=== PATIENT | female | born 1975 | race Caucasian/White ===

== ENCOUNTER 2016-10-18 12:25 | Emergency (ER) | payer SELFPAY ==
[~2016-10-18] VITALS: Ht 157.5 cm; Wt 55.3 kg
[2016-10-18 13:02] VITALS: BP 110/69
[2016-10-18] MEDS ORDERED: ACETAMINOPHEN EXTRA STRENGTH 500 MG TAB PO ONE (13:10)
[2016-10-18] MEDS ORDERED: IBUPROFEN 600 MG TAB PO ONE (13:10)
--- NOTE | 2016-10-18 13:15 | NUR ---
PT PRESENTS TO ER W/C/O RIGHT 4TH FINGER PAIN. PT STATES SHE SMASHED HER RIGHT 4TH FINGER 6 MONTHS AGO AND HIT IT AGAIN LAST NOC, CAUSING IMMEDIATE PAIN; DENIES N/V/D; SKIN IS PINK/WARM/DRY; AAOX4 WITH EVEN AND STEADY GAIT; LUNGS CLEAR BL; HR EVEN AND REGULAR; PT DENIES ANY FEVER, CP, SOB, OR COUGH AT THIS TIME; PATIENT STATES PAIN OF 6/10 AT THIS TIME; VSS; PATIENT POSITIONED FOR COMFORT; HOB ELEVATED; BEDRAILS UP X2; BED DOWN. ER MD MADE AWARE OF PT STATUS.
[2016-10-18 14:14] VITALS: BP 106/67
== END 2016-10-18 14:14 | disposition home or self-care (01) ==
LOC: MED 12:25
DX: S60.041A Contusion of right ring finger without damage to nail, initial encounter (principal); W22.8XXA Striking against or struck by other objects, initial encounter; Y93.89 Activity, other specified; Y92.89 Other specified places as the place of occurrence of the external cause; Y99.8 Other external cause status
CPT/HCPCS: 73140; 99284; Q0092

== ENCOUNTER 2018-09-25 15:25 | Emergency (ER) | payer SELFPAY ==
[~2018-09-25] VITALS: Ht 157.5 cm; Wt 56.7 kg
[2018-09-25 15:35] VITALS: BP 115/74
--- NOTE | 2018-09-25 15:40 | NUR ---
PATIENT AMBULATED TO ER BED 1.
--- NOTE | 2018-09-25 15:45 | NUR ---
PT PRESENTED TO THE ED WITH THE CHIEF C/O LEFT PINKY FINGER PAIN SINCE LAST NIGHT. NOT TAKING ANY MEDS FOR PAIN. SWOLLEN FINGER. +SENSATION. +CIRCULATION. DENIES ANY FEVER. NO DISCHARGE NOTED. DENIES ANY OTHER PROBLEM AT THIS TIME. ER MD AWARE.
[2018-09-25 16:20] VITALS: BP 107/68
--- NOTE | 2018-09-25 16:20 | NUR ---
Patient discharged with v/s stable. Written and verbal after care instructions given and explained. Patient alert, oriented and verbalized understanding of instructions. Ambulatory with steady gait. All questions addressed prior to discharge. ID band removed. Patient advised to follow up with PMD. Rx of KEFLEX 500MG given. Patient educated on indication of medication including possible reaction and side effects. Opportunity to ask questions provided and answered.
== END 2018-09-25 16:20 | disposition home or self-care (01) ==
LOC: MED 15:25
DX: L03.012 Cellulitis of left finger (principal)
CPT/HCPCS: 99283

== ENCOUNTER 2019-01-25 12:32 | Emergency (ER) | payer OTHER ==
[~2019-01-25] VITALS: Ht 157.5 cm; Wt 59.0 kg
[2019-01-25 12:41] VITALS: BP 140/58
--- NOTE | 2019-01-25 12:56 | NUR ---
PT TO ER BED 2
--- NOTE | 2019-01-25 13:07 | NUR ---
XRAY AT BEDSIDE
--- NOTE | 2019-01-25 13:14 | NUR ---
43F C/O RT HAND PAIN FOR 2 DAYS PT STATES SHE LIFTS HEAVY BAGS AT WORK ~50LBS , DENIES TRUAMA TO HAND. PAIN RADIATING UP TO ELBOW. SWELLING AT THENAR EMINENCE. NO ERYTHEMA. SKIN INTACT.
[2019-01-25] MEDS ORDERED: IBUPROFEN 800 MG TAB PO ONE (14:00)
[2019-01-25 14:50] VITALS: BP 135/68
== END 2019-01-25 14:50 | disposition home or self-care (01) ==
LOC: MED 12:32
DX: S63.501A Unspecified sprain of right wrist, initial encounter (principal); X50.9XXA Other and unspecified overexertion or strenuous movements or postures, initial encounter; Y93.89 Activity, other specified; Y92.89 Other specified places as the place of occurrence of the external cause; Y99.8 Other external cause status
CPT/HCPCS: 29125; 73130; 99283; Q0092

== ENCOUNTER 2019-02-24 08:59 | Emergency (ER) | payer SELFPAY ==
[~2019-02-24] VITALS: Ht 160 cm; Wt 51.7 kg
[2019-02-24 09:18] VITALS: BP 110/75
[2019-02-24] MEDS: IBUPROFEN 600 MG TAB PO ONE (10:34)
[2019-02-24 11:43] LABS: ALBUMIN 3.3 g/dL (3.4-5.0); ANION GAP 10.2 (8-16); CARBON DIOXIDE 26.6 mmol/L (21-32); CREATININE 0.6 mg/dL (0.6-1.3); POTASSIUM 3.8 mmol/L (3.5-5.1); TOTAL BILIRUBIN 0.2 mg/dL (0.0-1.0)
[2019-02-24 11:44] LABS: BASOPHILS # (AUTO) 0.1 K/uL (0.00-0.22); EOSINOPHILS # (AUTO) 0.1 K/uL (0-0.4); EOSINOPHILS % (AUTO) 1.4 % (0.0-4.0); HEMATOCRIT 28.2 % (36-48); HEMOGLOBIN 8.2 g/dL (12.0-16.0); LYMPHOCYTES # (AUTO) 1.7 K/uL (2.5-16.5); MEAN CORPUSCULAR HEMOGLOBIN 17 pg (27-31); MEAN CORPUSCULAR HGB CONC 29 g/dL (33-37); MEAN CORPUSCULAR VOLUME 59.2 fL (80-94); MONOCYTES # (AUTO) 0.4 K/uL (0.8-1.0); MONOCYTES % (AUTO) 6.1 % (1.7-9.3); NEUTROPHILS # (AUTO) 4.9 K/uL (1.8-7.7); NEUTROPHILS % (AUTO) 67.5 % (42.2-75.2); PLATELET COUNT (AUTO) 349 K/uL (140-450); RED BLOOD CELL COUNT(AUTO) 4.77 MIL/uL (4.20-5.40); RED CELL DISTRIBUTION WIDTH 20.5 % (11.6-13.7); WHITE BLOOD COUNT (AUTO) 7.2 K/uL (4.8-10.8)
[2019-02-24 14:07] VITALS: BP 110/80
== END 2019-02-24 14:07 | disposition home or self-care (01) ==
LOC: MED 08:59
DX: R07.89 Other chest pain (principal); R06.02 Shortness of breath; F41.9 Anxiety disorder, unspecified; Z91.030 Bee allergy status
CPT/HCPCS: 36415; 71045; 80053; 81002; 81025; 84484; 85025; 93005; 99284; Q0092

== ENCOUNTER 2019-06-15 08:21 | Inpatient (IN) | payer MEDICAID ==
[~2019-06-15] VITALS: Ht 167.6 cm; Wt 51.3 kg
--- NOTE | 2019-06-15 00:45 | NUR ---
BLOOD TRANSFUSION IN PROGRESS AT THIS TIME. PT HAS NO S/S OF REACTION NOTED. SHE IS IN BED RESTING WITH EYES CLOSED BUT AROUSABLE TO NAME AND LIGHT TOUCH. V/S FOLLOWS: T 98.2 P 91 R 18 B/P 126/72 02 100% ON ROOM AIR. ALL FALLS PRECAUTIONS IN PLACE AT THIS TIME AND CALL FELICIANO.
[2019-06-15 08:29] VITALS: BP 153/94
--- NOTE | 2019-06-15 08:35 | NUR ---
43 Y/O FEMALE PRESENTING WITH C/C OF ABDONIMAL PAIN LLQ/RLQ 7/10 CRAMPING AND BLEEDING FROM PERIOD X6 MONTHS. PER PT IT HAS WORSEN BY HAVING BLOOD CLOTS PRESENT X 2 DAYS. PER PT NO BLOOD TRANSFUSIONS IN THE PAST. NKA. MEDICAL HX OF CYST REMOVAL IN THE PAST. MEDICATIONS OF ATIVAN PRN. DENIES N/V/D. SIDE RAIL X1. BOWEL SOUNDS NORMOACTIVE.
--- NOTE | 2019-06-15 09:00 | NUR ---
DR ANDRADE AT BEDSIDE
--- NOTE | 2019-06-15 09:10 | NUR ---
LAB AT BEDSIDE
[2019-06-15 09:24] LABS: BASOPHILS # (AUTO) 0.1 K/uL (0.00-0.22); LYMPHOCYTES # (AUTO) 1.6 K/uL (2.5-16.5); MONOCYTES # (AUTO) 0.4 K/uL (0.8-1.0)
[2019-06-15 09:28] LABS: BASOPHILS % (AUTO) 0.9 % (0.0-2.0); EOSINOPHILS % (AUTO) 0.7 % (0.0-4.0); HEMATOCRIT 20.7 % (36-48); LYMPHOCYTES % (AUTO) 25.6 % (20.5-51.1); MEAN CORPUSCULAR HEMOGLOBIN 17 pg (27-31); MEAN CORPUSCULAR HGB CONC 29 g/dL (33-37); MEAN CORPUSCULAR VOLUME 60.5 fL (80-94); NEUTROPHILS # (AUTO) 4.1 K/uL (1.8-7.7); NEUTROPHILS % (AUTO) 66.8 % (42.2-75.2); PLATELET COUNT (AUTO) 371 K/uL (140-450); RED BLOOD CELL COUNT(AUTO) 3.43 MIL/uL (4.20-5.40); RED CELL DISTRIBUTION WIDTH 18.1 % (11.6-13.7); WHITE BLOOD COUNT (AUTO) 6.1 K/uL (4.8-10.8)
[2019-06-15 09:36] LABS: HEMOGLOBIN 5.9 g/dL (12.0-16.0)
--- NOTE | 2019-06-15 09:37 | NUR ---
DR ANDRADE NOTIFIED OF CRITICAL LAB VALUE ; H/H 5.9/20.7 ; LAB OBTAINED FROM ASSOCIATE SPA DIRECTOR GAEL Addendum: 06/15/19 at 1009 by KASIE ASSOCIATE SPA DIRECTORJENNIFER ARIZA
--- NOTE | 2019-06-15 09:38 | NUR ---
ULTRASOUND AT BEDSIDE
[2019-06-15] MEDS ORDERED: MEDR10TA PO (09:45)
--- NOTE | 2019-06-15 09:54 | NUR ---
EMT AT BEDSIDE ; EKG
[2019-06-15] MEDS ORDERED: ACETAMINOPHEN 325 MG TAB PO PRN (09:55)
[2019-06-15] MEDS ORDERED: DOCUSATE SODIUM 100 MG GELCAP PO PRN (09:55)
[2019-06-15] MEDS ORDERED: HYDROcodone/APAP 5/325 MG 1 TAB TAB PO PRN (09:55)
[2019-06-15] MEDS ORDERED: ONDANSETRON 4 MG/2 ML VIAL IM/IVP PRN (09:55)
[2019-06-15] MEDS ORDERED: MORPHINE SULFATE 2 MG/ML SYR IVP PRN (09:55)
--- NOTE | 2019-06-15 10:06 | NUR ---
DR ANDRADE AT BEDSIDE
--- NOTE | 2019-06-15 10:28 | NUR ---
BLOOD TRANSFUSION CONSENT SIGNED BY PATIENT AND ON CHART
[2019-06-15 10:48] LABS: POTASSIUM 3.8 mmol/L (3.5-5.1)
[2019-06-15 10:49] LABS: ANION GAP 13.3 (8-16); CARBON DIOXIDE 27.5 mmol/L (21-32)
[2019-06-15 10:50] LABS: ALBUMIN 3.5 g/dL (3.4-5.0); CREATININE 0.7 mg/dL (0.6-1.3); TOTAL BILIRUBIN 0.2 mg/dL (0.0-1.0)
--- NOTE | 2019-06-15 10:55 | NUR ---
Patient will be admitted to care of DR GRIER. Admited to TELEMETRY. Will go to [id number]. Belongings list completed. Report to DONNIE BROOKS. RECEIVING NURSE NOTIFIED OF BLOOD READY PER LABORATORY TO Walker UPON BED SIDE REPORT.
--- NOTE | 2019-06-15 10:55 | NUR ---
RECEIVED PATIENT FROM ER, REPORT GIVEN BY MARVA, PATIENT TRANSFERED INTO BED. VITALS ARE STABLE. WILL START IV FLUIDS AND CONFIRM ORDERS FOR BLOOD TRANSFUSION.
[2019-06-15] MEDS: NACL 0.9% 1,000 ML IV SCH ×2 (11:00→17:34)
[2019-06-15 11:09] LABS: BILIRUBIN,URINE NEGATIVE (NEGATIVE); BLOOD, URINE 2+ (NEGATIVE); COLOR,URINE YELLOW (YELLOW); LEUKOCYTE ESTERASE ,URINE NEGATIVE (NEGATIVE); NITRITE, URINE NEGATIVE (NEGATIVE); PH,URINE 6.5 (5.0-9.0); UGLUCOSE NEGATIVE (NEGATIVE)
[2019-06-15 11:10] LABS: PROTHROMBIN TIME 9.5 secs (10.8-13.4)
--- NOTE | 2019-06-15 11:15 | NUR ---
PATIENT SIGNED CONSENT FOR BLOOD TRANSFUSION, HAS NO QUESTIONS PERTAINING TO PROCEDURE. VITAL SIGNS ARE STABLE, WILL PREPARE PATIENT FOR BLOOD TRANSFUSION,
--- NOTE | 2019-06-15 12:00 | NUR ---
BLOOD INITIATED, PRE-BLOOD TRANSFUSION VITALS ARE STABLE. WILL CONTINUE TO MONITOR. PATIENT IN BED STABLE AT THIS TIME.
[2019-06-15 12:12] LABS: BARBITURATE, URINE NEGATIVE ng/ml (NEG <=200); BENZODIAZEPINE, URINE NEGATIVE ng/mL (NEG <=200); CANNABINOID, URINE NEGATIVE ng/mL (NEG <=50); COCAINE, URINE NEGATIVE ng/mL (NEG <=300); PHENCYCLIDINE SCREEN,URINE NEGATIVE ng/mL (NEG <=25)
[2019-06-15 12:13] LABS: OPIATE, URINE NEGATIVE ng/mL (NEG <=2000)
[2019-06-15 12:24] LABS: APPEARANCE,URINE CLEAR (CLEAR); RBC,URINE 0-5 /HPF (0-5)
[2019-06-15 12:25] LABS: WBC,URINE 0-5 /HPF (0-5)
[2019-06-15] MEDS: LORazepam 2 MG/ML VIAL IM/IVP PRN ×2 (12:44→22:19)
[2019-06-15 13:26] LABS: PHOSPHORUS 3.7 mg/dL (2.5-4.9)
[2019-06-15] MEDS: busPIRone 5 MG TAB PO SCH ×2 (14:22→21:00)
--- NOTE | 2019-06-15 16:00 | NUR ---
BLOOD TRANSFUSION COMPLETED. VITAL SIGNS STABLE. PATIENT SHOW NO SIGNS OF DISTRESS. WILL CALL LAB FOR A REPEAT BLOOD PANEL.
--- NOTE | 2019-06-15 16:10 | NUR ---
PATIENT REQUESTING PAIN MEDICATION FOR HEADACHE. PAIN MED WILL BE GIVEN AT THIS TIME. WILL CONTINUE TO FOLLOW UP.
[2019-06-15 18:06] LABS: BASOPHILS # (AUTO) 0.1 K/uL (0.00-0.22); BASOPHILS % (AUTO) 1.2 % (0.0-2.0); EOSINOPHILS # (AUTO) 0.1 K/uL (0-0.4); EOSINOPHILS % (AUTO) 1.8 % (0.0-4.0); HEMATOCRIT 22.5 % (36-48); LYMPHOCYTES # (AUTO) 1.4 K/uL (2.5-16.5); LYMPHOCYTES % (AUTO) 21.5 % (20.5-51.1); MEAN CORPUSCULAR HEMOGLOBIN 19 pg (27-31); MEAN CORPUSCULAR HGB CONC 30 g/dL (33-37); MEAN CORPUSCULAR VOLUME 62.6 fL (80-94); MONOCYTES # (AUTO) 0.4 K/uL (0.8-1.0); MONOCYTES % (AUTO) 6.4 % (1.7-9.3); NEUTROPHILS # (AUTO) 4.5 K/uL (1.8-7.7); NEUTROPHILS % (AUTO) 69.1 % (42.2-75.2); PLATELET COUNT (AUTO) 340 K/uL (140-450); RED CELL DISTRIBUTION WIDTH 20.5 % (11.6-13.7); WHITE BLOOD COUNT (AUTO) 6.5 K/uL (4.8-10.8)
--- NOTE | 2019-06-15 18:15 | NUR ---
PATIENT SLEEPING AT THE BED SIDE, NO RESPIRATORY DISTRESS NOTED. WILL CONTINUE TO MONITOR
[2019-06-15 18:16] LABS: HEMOGLOBIN 6.7 g/dL (12.0-16.0)
--- NOTE | 2019-06-15 19:05 | NUR ---
ENDORSED CARE TO SCREEN WRITER NURSE. PATIENT IN STABLE CONDITION
--- NOTE | 2019-06-15 19:50 | NUR ---
PT IN LOW BED WITH SIDE RAILS X2. SHE IS AOX4 WITH 20G IV SITE INTACT AND ASYMPTOMATIC AND RUNNING N/S AT 130MLS/HR. PT DENIES ANY PAIN AT THIS TIME , SHE STATES THAT SHE HAS MINIMAL VAGINAL BLEEDING AT THIS TIME. V/S FOLLOWS: T 97.9 P 95 R 18 B/P 116/78 02 99% ON ROOM AIR AND CALL FELICIANO IN REACH.
[2019-06-15 20:00] VITALS: BP 126/72
[2019-06-15] MEDS: medroxyPROGESTERone 10 MG TAB PO SCH (20:59)
--- NOTE | 2019-06-15 21:00 | NUR ---
PT IN BED NO C/O VOICED. PT AMBULATE TO BATHROOM, HER [employer]IT[employer] [place] WAS FULL AND SHE PASSED A MODERATE BLOOD CLOT. PT GIVEN ORDERED PROVERA, MEDICATION EDUCATION PROVIDED AT BEDSIDE INCLUDING SIDE EFFECTS OF MEDICATION, PT ACKNOWLEDGED UNDERSTANDING. ORDERED BUSPAR WAS NOT AVAILABLE. SLACKLINE OPERATOR AWARE. IV SITE INTACT AND RUNNING NS AT 130 MLS/HR. ALL FALLS PROTOCOL IN PLACE AND CALL FELICIANO IN REACH.
--- NOTE | 2019-06-15 22:20 | NUR ---
PT C/O OF ANXIETY, SHE WAS GIVEN IVP/PRN ATIVAN ORDERED. WILL MONITOR FOR EFFECT.
--- NOTE | 2019-06-15 23:10 | NUR ---
BLOOD TRANSFUSION STARTED. PT HAS 20G IV SITE INTACT FLUSHED PATENT AND ASYMPTOMATIC. PRE TRANSFUSION V/S FOLLOWS: T 97.5 P 88 R 18 B/P 125/89 02 100% ON ROOM AIR. WILL MONITOR FOR ANY REACTION. ALL FALLS PRECAUTIONS IN PLACE.
--- NOTE | 2019-06-15 23:30 | NUR ---
BLOOD TRANSFUSION IN PROGRESS, NO REACTION NOTED. PT IN BED RESTING WITH EYES CLOSED SHE REPORTS NO ANXIETY, AND NO REACTION NOTED FROM BLOOD TRANSFUSION. V/S FOLLOWS: T 97.0 P 82 R 18 B/P 121/84 02 99%. ALL FALLS PRECAUTIONS IN PLACE AND CALL FELICIANO IN REACH.
[2019-06-16] VITALS: BP 115/73
--- NOTE | 2019-06-16 00:50 | NUR ---
BLOOD TRANSFUSION IN PROGRESS, NO S/S OF REACTION NOTED. V/S FOLLOWS; T 98.0 P 92 R 18 B/P 115/73 02 100% ON ROOM AIR. ALL FALLS PRECAUTIONS IN PLACE AND CALL FELICIANO IN REACH.
[2019-06-16] MEDS: NACL 0.9% 1,000 ML IV SCH ×4 (01:16→23:08)
--- NOTE | 2019-06-16 02:10 | NUR ---
BLOOD TRANSFUSION COMPLETED. NO ADVERSE REACTION NOTED. POST TRANSFUSION V/S FOLLOW: T 97.0 P 93 R 18 B/P 116/78 02 100% ON ROOM AIR. ALL FALLS PRECAUTIONS IN PLACE AND CALL FELICIANO IN REACH.
[2019-06-16 04:00] VITALS: BP 124/87
[2019-06-16 04:15] LABS: BASOPHILS # (AUTO) 0.1 K/uL (0.00-0.22); EOSINOPHILS # (AUTO) 0.3 K/uL (0-0.4)
--- NOTE | 2019-06-16 04:30 | NUR ---
PT IN BED NO S/S OF PAIN OR DISTRESS NOTED V/S FOLLOWS: T 97.2 P 96 R 18 B/P 124/87 02 98% ON ROOM AIR. IV FLUIDS RUNNING ORDERED, NO S/S OF PAIN OR DISTRESS NOTED. BED LOW AND CALL FELICIANO IN REACH.
[2019-06-16 04:33] LABS: EOSINOPHILS % (AUTO) 4.1 % (0.0-4.0); HEMATOCRIT 25.5 % (36-48); LYMPHOCYTES # (AUTO) 1.7 K/uL (2.5-16.5); LYMPHOCYTES % (AUTO) 22.7 % (20.5-51.1); MEAN CORPUSCULAR HEMOGLOBIN 20 pg (27-31); MEAN CORPUSCULAR HGB CONC 30 g/dL (33-37); MEAN CORPUSCULAR VOLUME 65.9 fL (80-94); MONOCYTES # (AUTO) 0.5 K/uL (0.8-1.0); NEUTROPHILS # (AUTO) 4.9 K/uL (1.8-7.7); NEUTROPHILS % (AUTO) 65.2 % (42.2-75.2); PLATELET COUNT (AUTO) 319 K/uL (140-450); RED BLOOD CELL COUNT(AUTO) 3.87 MIL/uL (4.20-5.40); WHITE BLOOD COUNT (AUTO) 7.6 K/uL (4.8-10.8)
[2019-06-16 04:34] LABS: ANION GAP 12.6 (8-16); CARBON DIOXIDE 25.2 mmol/L (21-32); CREATININE 0.6 mg/dL (0.6-1.3); POTASSIUM 3.8 mmol/L (3.5-5.1)
[2019-06-16 04:37] LABS: MAGNESIUM 1.8 mg/dL (1.8-2.4); PHOSPHORUS 3.3 mg/dL (2.5-4.9)
[2019-06-16 04:39] LABS: CHOL/HDL RATIO 2.5 (1-4.5)
[2019-06-16 04:55] LABS: HEMOGLOBIN 7.6 g/dL (12.0-16.0)
[2019-06-16 06:12] LABS: FOLIC ACID 15.2 ng/mL (>3.0)
--- NOTE | 2019-06-16 07:25 | NUR ---
REPORT GIVEN TO MIKE RN DAYHISFT NURSE AT BEDSIDE FOR CONTINUITY OF CARE, PT IN STABLE CONDITION.
--- NOTE | 2019-06-16 07:26 | NUR ---
received bedside report from assistant store manager operations nurse. pt is awake and alert x4. no signs of distress on room air. skin is intact. iv on LAC 20g infusing Ns at 130. clean dry and intact. Pt is weak, fall risk protocol in place. continent, able to make needs known. Tele monitor in place. will continue to monitor. Bed on low position.
[2019-06-16] MEDS ORDERED: SODIUM FERRIC GLUCONATE 125 MG in NACL 0.9% 100 ML IV SCH (07:30)
[2019-06-16] MEDS ORDERED: SODIUM FERRIC GLUCONATE 125 MG in NACL 0.9% 100 ML IV ONE (07:30)
[2019-06-16 08:00] VITALS: BP 139/91
[2019-06-16] MEDS ORDERED: ACETAMINOPHEN 325 MG TAB PO SCH (08:00)
[2019-06-16] MEDS: medroxyPROGESTERone 10 MG TAB PO SCH ×2 (08:26→20:18)
[2019-06-16] MEDS: FERROUS SULFATE 325 MG TABEC PO SCH ×2 (08:27→18:09)
[2019-06-16] MEDS: NICOTINE TRANSD SYS 7 MG/24 HR PATCH TD SCH (08:27)
--- NOTE | 2019-06-16 08:40 | NUR ---
administered meds. Pt tolerated well. Educated on side effects. Pt. refused Nicotine patch, she said she doesn't smoke. will continue to monitor
--- NOTE | 2019-06-16 08:41 | NUR ---
PATIENT HAS BEEN SCREENED AND CATEGORIZED HIGH NUTRITION RISK. PATIENT WILL BE SEEN WITHIN 1-2 DAYS OF ADMISSION. 06/16/[address]
--- NOTE | 2019-06-16 08:55 | NUR ---
DC [age] YRS OLD FEMALE PT WAS ADMITTED FROM HOME WITH A DX OF SEVER ANEMIA, DYSFUNCTIONAL UTERINE BLEEDING . PT HAS A HX OF OVARIAN CYST, ,METH ABUSE. TRANSVAGINAL US DONE SHOWED UTERINE FIBROID LEFT OVARIAN CYST. 2 UNITS PRBC TRANSFUSED MONITOR H/H ON ADMISSION IT WAS 5.9/20.7 AFTER 2 UNITS 7.6/25.5 STARTED PROVERA 10MG PO BID, IRON AND VIT C SUPPLEMENTATION RECOMMENDED. OBGYN DR BERTRAND CONSULTED. DC PLAN TO GO HOME WHEN STABLE. CM TO FOLLOW.
[2019-06-16] MEDS: busPIRone 5 MG TAB PO SCH ×2 (10:10→20:19)
--- NOTE | 2019-06-16 10:45 | NUR ---
BLOOD TRANSFUSION STARTED. PATIENT IN NO DISTRESS. WILL CONTINUE TO MONITOR THE PATIENT.
--- NOTE | 2019-06-16 11:16 | NUR ---
PATIENT IS SLEEPING. NO SIGNS OF DISTRESS. WILL CONTINUE TO MONITOR. FAMILY AT BEDSIDE
[2019-06-16] MEDS ORDERED: ASCORBIC ACID 500 MG TAB PO SCH (11:50)
[2019-06-16 12:00] VITALS: BP 137/87
[2019-06-16] MEDS: FUROSEMIDE 20 MG TAB PO SCH ×2 (12:00→14:40)
--- NOTE | 2019-06-16 13:57 | NUR ---
ADMINISTERED MED. TOLERATED WELL. EDUCATED SIDE EFFECTS
--- NOTE | 2019-06-16 14:17 | NUR ---
06/16/19 RD INITIAL ASSESSMENT COMPLETED PLEASE REFER TO NUTRITION ASSESSMENT UNDER CARE ACTIVITY FOR ESTIMATED NUTRITIONAL NEEDS. 1. RECOMMEND REGULAR DIET WITH ENSURE BID TOLERATED 2. RD PROVIDED MALNUTRITION EDUCATION 3. ENCOURAGED INCREASING PO INTAKE 4. RD TO FOLLOW-UP 2-3 DAYS, HIGH RISK LAKSHMI PIMENTEL, RD
--- NOTE | 2019-06-16 15:10 | NUR ---
BLOOD TRANSFUSION COMPLETED AT 1435. PT HAS NO ALLERGIC REACTION. MEDICATION GIVEN ORDERED. FORMS COMPLETED
[2019-06-16 16:15] LABS: BASOPHILS # (AUTO) 0.1 K/uL (0.00-0.22); EOSINOPHILS # (AUTO) 0.3 K/uL (0-0.4); EOSINOPHILS % (AUTO) 3.9 % (0.0-4.0); HEMATOCRIT 27.6 % (36-48); HEMOGLOBIN 8.6 g/dL (12.0-16.0); LYMPHOCYTES # (AUTO) 1.8 K/uL (2.5-16.5); LYMPHOCYTES % (AUTO) 26.9 % (20.5-51.1); MEAN CORPUSCULAR HEMOGLOBIN 21 pg (27-31); MEAN CORPUSCULAR HGB CONC 31 g/dL (33-37); MEAN CORPUSCULAR VOLUME 67.5 fL (80-94); MONOCYTES # (AUTO) 0.4 K/uL (0.8-1.0); MONOCYTES % (AUTO) 6.6 % (1.7-9.3); NEUTROPHILS # (AUTO) 4.2 K/uL (1.8-7.7); NEUTROPHILS % (AUTO) 61.6 % (42.2-75.2); PLATELET COUNT (AUTO) 316 K/uL (140-450); RED BLOOD CELL COUNT(AUTO) 4.09 MIL/uL (4.20-5.40); RED CELL DISTRIBUTION WIDTH 24.2 % (11.6-13.7); WHITE BLOOD COUNT (AUTO) 6.8 K/uL (4.8-10.8)
[2019-06-16 17:01] VITALS: BP 129/83
--- NOTE | 2019-06-16 17:26 | NUR ---
PATIENT IS SLEEPING. NO SIGNS OF DISTRESS. WILL CONTINUE MONITORING
--- NOTE | 2019-06-16 19:07 | NUR ---
RECEIVED BEDSIDE REPORT FROM NYLA BROOKS. PT IS AAOX4 ON ROOM AIR. RESPIRATIONS ARE EQUAL AND UNLABORED. IV ON LAC 20G IVF NS@ 130 INFUSING WELL. SKIN IS INTACT. PT ON FALL PRECAUTION D/T CC FATIGUE AND DIZZINESS. WILL MONITOR HGB AND BLEEDING. POC DISCUSSED WITH PATIENT AND FAMILY. CALL LIGHT IS WITHIN REACH. WILL CONTINUE TO MONITOR.
[2019-06-16 20:00] VITALS: BP 136/91
--- NOTE | 2019-06-16 20:19 | NUR ---
VITAL SIGNS ARE WITHIN NORMAL LIMITS. NANCY MEDICATIONS GIVEN PER ORDERS. EDUCATED PT ON S/E. CALL LIGHT IS WITHIN REACH. WILL CONTINUE TO MONITOR.
[2019-06-16 21:22] LABS: BASOPHILS # (AUTO) 0.1 K/uL (0.00-0.22); BASOPHILS % (AUTO) 1.5 % (0.0-2.0); EOSINOPHILS # (AUTO) 0.4 K/uL (0-0.4); EOSINOPHILS % (AUTO) 4.5 % (0.0-4.0); HEMATOCRIT 28.4 % (36-48); HEMOGLOBIN 8.8 g/dL (12.0-16.0); LYMPHOCYTES # (AUTO) 1.5 K/uL (2.5-16.5); LYMPHOCYTES % (AUTO) 17.6 % (20.5-51.1); MEAN CORPUSCULAR HEMOGLOBIN 21 pg (27-31); MEAN CORPUSCULAR HGB CONC 31 g/dL (33-37); MEAN CORPUSCULAR VOLUME 67.6 fL (80-94); MONOCYTES # (AUTO) 0.5 K/uL (0.8-1.0); MONOCYTES % (AUTO) 5.5 % (1.7-9.3); NEUTROPHILS # (AUTO) 6.2 K/uL (1.8-7.7); NEUTROPHILS % (AUTO) 70.9 % (42.2-75.2); PLATELET COUNT (AUTO) 313 K/uL (140-450); RED CELL DISTRIBUTION WIDTH 24.4 % (11.6-13.7); WHITE BLOOD COUNT (AUTO) 8.8 K/uL (4.8-10.8)
--- NOTE | 2019-06-16 21:54 | NUR ---
PATIENT IS SLEEPING COMFORTABLY IN BED. CHEST RISE AND FALL. NO S/S OF DISTRESS. ALL NEEDS MET AT THIS TIME. CALL LIGHT IS WITHIN REACH.
[2019-06-17] VITALS: BP 117/76
--- NOTE | 2019-06-17 00:09 | NUR ---
VITAL SIGNS ARE WITHIN NORMAL LIMITS. PT DENIES PAIN OR DIZZINESS. ALL SAFETY MEASURES ARE IN PLACE. CALL LIGHT IS WITHIN REACH. WILL CONTINUE TO MONITOR.
--- NOTE | 2019-06-17 02:13 | NUR ---
MADE ROUNDS. PATIENT IS SLEEPING COMFORTABLY IN BED WITH EYES CLOSED. CHEST RISE AND FALL. SAFETY MEASURES ARE IN PLACE.
[2019-06-17 04:00] VITALS: BP 139/85
--- NOTE | 2019-06-17 04:15 | NUR ---
VITAL SIGNS TAKEN AND ARE WITHIN NORMAL LIMITS. DENIES PAIN. ALL SAFETY MEASURES ARE IN PLACE. WILL CONTINUE TO MONITOR.
[2019-06-17 07:08] LABS: BASOPHILS % (AUTO) 0.3 % (0.0-2.0); EOSINOPHILS # (AUTO) 0.3 K/uL (0-0.4); EOSINOPHILS % (AUTO) 3.7 % (0.0-4.0); HEMATOCRIT 30.3 % (36-48); HEMOGLOBIN 9.2 g/dL (12.0-16.0); LYMPHOCYTES # (AUTO) 1.6 K/uL (2.5-16.5); LYMPHOCYTES % (AUTO) 19.1 % (20.5-51.1); MEAN CORPUSCULAR HEMOGLOBIN 21 pg (27-31); MEAN CORPUSCULAR HGB CONC 30 g/dL (33-37); MEAN CORPUSCULAR VOLUME 68.7 fL (80-94); MONOCYTES # (AUTO) 0.4 K/uL (0.8-1.0); MONOCYTES % (AUTO) 4.8 % (1.7-9.3); NEUTROPHILS # (AUTO) 6.2 K/uL (1.8-7.7); NEUTROPHILS % (AUTO) 72.1 % (42.2-75.2); PLATELET COUNT (AUTO) 329 K/uL (140-450); RED BLOOD CELL COUNT(AUTO) 4.41 MIL/uL (4.20-5.40); WHITE BLOOD COUNT (AUTO) 8.5 K/uL (4.8-10.8)
--- NOTE | 2019-06-17 07:10 | NUR ---
RECEIVED BEDSIDE SHIFT REPORT FROM NIGHT NURSE, PATIENT IS IN STABLE CONDITION, CALL LIGHT WITHIN REACH.
--- NOTE | 2019-06-17 07:15 | NUR ---
GAVE BEDSIDE REPORT TO DAY RN. PT ENDORSED IN STABLE CONDITION.
[2019-06-17 07:22] LABS: ANION GAP 13.5 (8-16); CARBON DIOXIDE 23.3 mmol/L (21-32); CREATININE 0.7 mg/dL (0.6-1.3); POTASSIUM 3.8 mmol/L (3.5-5.1)
[2019-06-17 07:44] LABS: MAGNESIUM 1.9 mg/dL (1.8-2.4); PHOSPHORUS 3.1 mg/dL (2.5-4.9)
[2019-06-17 08:00] VITALS: BP 129/82
[2019-06-17] MEDS: NACL 0.9% 1,000 ML IV SCH (08:04)
[2019-06-17] MEDS: FERROUS SULFATE 325 MG TABEC PO SCH (08:58)
[2019-06-17] MEDS: busPIRone 5 MG TAB PO SCH (08:58)
[2019-06-17] MEDS: medroxyPROGESTERone 10 MG TAB PO SCH (08:58)
[2019-06-17] MEDS ORDERED: ASCORBIC ACID 500 MG TAB PO SCH (09:00)
[2019-06-17] MEDS: NICOTINE TRANSD SYS 7 MG/24 HR PATCH TD SCH (09:00)
--- NOTE | 2019-06-17 09:00 | NUR ---
SCHEDULED MEDICATIONS AT THE BEDSIDE, PATIENT EDUCATED ON SIDE EFFECTS, PATIENT STATES SHE HAS NO QUESTIONS REGARDING MEDICATIONS. NO SIGNS OF DISTRESS WILL CONTINUE TO MONITOR.
[2019-06-17] MEDS ORDERED: MEDR10TA33 PO (10:22)
[2019-06-17] MEDS ORDERED: BUS5 PO (10:22)
[2019-06-17] MEDS ORDERED: FER325 PO (10:22)
--- NOTE | 2019-06-17 11:02 | NUR ---
ACKNOWLEDGED ORDERS TO DISCHARGE PATIENT FROM DR DEWITT, WILL PREPARED PATIENT FOR DISCHARGE.
[2019-06-17 12:00] VITALS: BP 140/97
--- NOTE | 2019-06-17 12:35 | NUR ---
PATIENT EDUCATED ON DISCHARGE INSTRUCTIONS, PATIENT VERBALIZED UNDERSTAND TO FOLLOW UP WITH DR SANZ FOR OBGYN CONSULT ON Friday06/21/2019 AT 8AM, PATIENT WILL RF TEST TECHNICIAN MEDICATIONS AT THE [facility] IN [place], ALL QUESTIONS WERE ANSWERED. PATIENT IS TO GET DRESS AND COLLECT ALL BELONGINGS. PATIENT'S BOYFRIEND, SUMAYA, IS AT THE BEDSIDE WITH PATIENT.
--- NOTE | 2019-06-17 12:49 | NUR ---
PATIENT IS DRESSED AND READY FOR DISCHARGE, PATIENT IS IN STABLE CONDITION. ID WRIST BANDS AND ALLERGY BAND WAS REMOVED FROM PATIENT, IV WAS REMOVED WITH LUMEN INTACT, NO REDNESS AND SWELLING NOTED. PATIENT HAS BELONGINGS AND WITH ESCORTED VIA AMBULATION WITH BOYFRIEND TO LOBBY. PATIENT IS DISCHARGED AT THIS TIME.
== END 2019-06-17 13:05 | disposition home or self-care (01) | DRG 532 ==
LOC: MED 08:21 → MTU 09:57
PROVIDERS: ADMIT General Practice; ATTEND General Practice
PROC: 30233N1 Transfusion of Nonautologous Red Blood Cells into Peripheral Vein, Percutaneous Approach (ICD-10-PCS; principal; 2019-06-15)
DX: D25.9 Leiomyoma of uterus, unspecified (principal); E87.8 Other disorders of electrolyte and fluid balance, not elsewhere classified; D50.9 Iron deficiency anemia, unspecified; F15.10 Other stimulant abuse, uncomplicated; F17.210 Nicotine dependence, cigarettes, uncomplicated; F41.0 Panic disorder [episodic paroxysmal anxiety]; N93.8 Other specified abnormal uterine and vaginal bleeding; N83.202 Unspecified ovarian cyst, left side; Z91.030 Bee allergy status; Z79.899 Other long term (current) drug therapy; Z91.14 Patient's other noncompliance with medication regimen; Z80.3 Family history of malignant neoplasm of breast; Z80.41 Family history of malignant neoplasm of ovary; Z71.51 Drug abuse counseling and surveillance of drug abuser
CPT/HCPCS: 36415; 76856; 80048; 80053; 80305; 81001; 81025; 82150; 82607; 82728; 82746; 83036; 83540; 83690; 83735; 83880; 84100; 84443; 84484; 85025; 85045; 85610; 85730; 86886; 86900; 86901; 86920; 87081; 93005; 99285; J2060; J2270; J2916; J7030; P9016; Q0092; Q0163

== ENCOUNTER 2019-06-17 15:06 | Emergency (ER) | payer MEDICAID ==
[~2019-06-17 15:06] MED LIST: BUS5 PO; FER325 PO; MEDR10TA PO; MEDR10TA33 PO
--- NOTE | 2019-06-17 15:13 | NUR ---
PATIENT LEFT WITHOUT BEING SEEN AT THIS TIME. AMB WITH STEADY GAIT.
== END 2019-06-17 15:13 | disposition left against medical advice (07) ==
LOC: MED 15:06
DX: Z53.21 Procedure and treatment not carried out due to patient leaving prior to being seen by health care provider (principal)

== ENCOUNTER 2020-01-07 11:07 | Emergency (ER) | payer MEDICAID, OTHER ==
[~2020-01-07] VITALS: Ht 160 cm; Wt 59.9 kg
[~2020-01-07 11:07] MED LIST changes: -MEDR10TA PO
[2020-01-07 11:13] VITALS: BP 118/93
--- NOTE | 2020-01-07 11:15 | NUR ---
Pt given cup for urine, ambuated to lobby with steady gait
[2020-01-07] MEDS ORDERED: HYDROcodone/APAP 5/325 MG 1 TAB TAB PO ONE (12:15)
[2020-01-07] MEDS ORDERED: ONDANSETRON 4 MG ODT PO ONE (12:15)
[2020-01-07] MEDS ORDERED: KETOROLAC 30 MG/ML VIAL IM ONE (12:15)
--- NOTE | 2020-01-07 12:35 | NUR ---
44 Y/O F C/C LOW BACK PAIN X 2 DAYS. PT DENIES TRAUMA OR HEAVY LIFTING. PAIN 10/10, SHARP SENSATION, THORACIC VERTEBREA AREA, NON RADIATING. TAKEN OTC RX IBUPROFEN WITH NO RELIEF. PT NKA. NO HX. NO RX. NO NVD. NO DYSURIA, OR BM IRREGULARITIES. PT IN CHAIR A.
--- NOTE | 2020-01-07 12:35 | NUR ---
PT VISUALT ACUITY IS: R- 20/20 L-20/20 BOTH- 20/20
[2020-01-07 13:16] VITALS: BP 120/90
--- NOTE | 2020-01-07 13:16 | NUR ---
Patient discharged with v/s stable. Written and verbal after care instructions given and explained. Patient alert, oriented and verbalized understanding of instructions. Ambulatory with steady gait. All questions addressed prior to discharge. ID band removed. Patient advised to follow up with PMD. Rx of IBUPROFEN, MEDROL, NORCO given. Patient educated on indication of medication including possible reaction and side effects. Opportunity to ask questions provided and answered.
== END 2020-01-07 13:16 | disposition home or self-care (01) ==
LOC: MED 11:07
DX: S39.012A Strain of muscle, fascia and tendon of lower back, initial encounter (principal); F17.210 Nicotine dependence, cigarettes, uncomplicated; Z98.890 Other specified postprocedural states; Z79.899 Other long term (current) drug therapy; W18.39XA Other fall on same level, initial encounter; Y93.89 Activity, other specified; Y92.89 Other specified places as the place of occurrence of the external cause; Y99.8 Other external cause status
CPT/HCPCS: 81002; 81025; 96372; 99283; J1885; Q0162

== ENCOUNTER 2020-01-10 18:10 | Emergency (ER) | payer OTHER ==
[~2020-01-10] VITALS: Ht 157.5 cm; Wt 60.8 kg
[2020-01-10 18:23] VITALS: BP 127/71
--- NOTE | 2020-01-10 18:30 | NUR ---
PT C/O RT LOWER BACK PAIN RADIATING TO MID BACK FOR 4 DAYS. PT DENIES ANY FEVER, N/V/D, COUGH, CP, SOB, OR UTI SX. NO CVAT BILATERAL. AAOX4 WITH EVEN AND STEADY GAIT; LUNGS CLEAR BL; HR EVEN AND REGULAR; PATIENT STATES PAIN OF 10/10 AT THIS TIME; VSS; PATIENT POSITIONED FOR COMFORT; HOB ELEVATED; BEDRAILS UP X1; BED DOWN. ER MD MADE AWARE OF PT STATUS.
--- NOTE | 2020-01-10 19:12 | NUR ---
Pt report given to CECILIA Bolivar. Transfer of care at this time.
--- NOTE | 2020-01-10 19:14 | NUR ---
Patient taken to CT scan via wheelchair by tech.
[2020-01-10 19:53] LABS: BASOPHILS # (AUTO) 0.1 K/uL (0.00-0.22); BASOPHILS % (AUTO) 0.6 % (0.0-2.0); EOSINOPHILS % (AUTO) 0.6 % (0.0-4.0); HEMATOCRIT 24.3 % (36-48); HEMOGLOBIN 7.3 g/dL (12.0-16.0); LYMPHOCYTES # (AUTO) 1.3 K/uL (2.5-16.5); LYMPHOCYTES % (AUTO) 15.6 % (20.5-51.1); MEAN CORPUSCULAR HEMOGLOBIN 21 pg (27-31); MEAN CORPUSCULAR HGB CONC 30 g/dL (33-37); MEAN CORPUSCULAR VOLUME 70.6 fL (80-94); MONOCYTES # (AUTO) 0.6 K/uL (0.8-1.0); MONOCYTES % (AUTO) 6.9 % (1.7-9.3); NEUTROPHILS # (AUTO) 6.4 K/uL (1.8-7.7); NEUTROPHILS % (AUTO) 76.3 % (42.2-75.2); PLATELET COUNT (AUTO) 395 K/uL (140-450); RED BLOOD CELL COUNT(AUTO) 3.44 MIL/uL (4.20-5.40); RED CELL DISTRIBUTION WIDTH 19.4 % (11.6-13.7); WHITE BLOOD COUNT (AUTO) 8.4 K/uL (4.8-10.8)
--- NOTE | 2020-01-10 20:00 | NUR ---
PT TRANSFERRED TO BED 9 [facility]IA [facility].
[2020-01-10] MEDS ORDERED: ACETAMINOPHEN 325 MG TAB PO ONE (20:15)
[2020-01-10] MEDS ORDERED: IBUPROFEN 600 MG TAB PO ONE (20:15)
[2020-01-10 20:40] LABS: ALBUMIN 3.7 g/dL (3.4-5.0); ANION GAP 17.4 (8-16); CARBON DIOXIDE 20.9 mmol/L (21-32); CREATININE 0.9 mg/dL (0.6-1.3); POTASSIUM 3.3 mmol/L (3.5-5.1); TOTAL BILIRUBIN 0.2 mg/dL (0.0-1.0)
[2020-01-10 21:09] VITALS: BP 128/72
[2020-01-10 23:57] LABS: APPEARANCE,URINE CLOUDY (CLEAR); BILIRUBIN,URINE NEGATIVE (NEGATIVE); BLOOD, URINE 2+ (NEGATIVE); COLOR,URINE YELLOW (YELLOW); LEUKOCYTE ESTERASE ,URINE NEGATIVE (NEGATIVE); NITRITE, URINE NEGATIVE (NEGATIVE); UGLUCOSE NEGATIVE (NEGATIVE)
[2020-01-11 00:31] LABS: RBC,URINE 0-5 /HPF (0-5); WBC,URINE 0-5 /HPF (0-5)
== END 2020-01-10 21:09 | disposition home or self-care (01) ==
LOC: MED 18:10
DX: R10.9 Unspecified abdominal pain (principal); D64.9 Anemia, unspecified; Z79.899 Other long term (current) drug therapy
CPT/HCPCS: 36415; 80053; 81001; 81025; 85025; 99284

== ENCOUNTER 2020-04-11 15:43 | Emergency (ER) | payer OTHER ==
[~2020-04-11] VITALS: Ht 157.5 cm; Wt 60.3 kg
[2020-04-11 15:56] VITALS: BP 152/99
--- NOTE | 2020-04-11 16:10 | NUR ---
PT PRESENTS WITH HIDRADENITIS SUPPURATIVA TAMIKO WITH PAIN 3/10 AND PURULENT DRAINAGE FOR 7 DAYS. RIGHT AXILLA IS WORSE THAN THE LEFT. DENIES FEVER, CHILLS, OR COUGH. PT AOX4 , AFIBRILE , AMBULATORY WITH STEADY GAIT , BILATERAL ARMPIT WITH NOTABLE LUMP AND PUSTULES , NO DISCHARGE . NO LIMITATION OF ROM. PMH: DENIES
--- NOTE | 2020-04-11 16:26 | NUR ---
DR SANTOS AT BEDSIDE EVALAUTING PT
[2020-04-11] MEDS ORDERED: LIDOCAINE MPF 1% 5 ML ONE (16:29)
--- NOTE | 2020-04-11 17:30 | NUR ---
DR SANTOS AT BEDSIDE LAUREN Coyle
[2020-04-11 17:55] VITALS: BP 152/99
--- NOTE | 2020-04-11 17:56 | NUR ---
Patient discharged with v/s stable. Written and verbal after care instructions given and explained regarding abscess. Patient alert, oriented and verbalized understanding of instructions. Ambulatory with steady gait. All questions addressed prior to discharge. ID band removed. Patient advised to follow up with PMD. Rx of doxcycline given. Patient educated on indication of medication including possible reaction and side effects. Opportunity to ask questions provided and answered.
== END 2020-04-11 17:56 | disposition home or self-care (01) ==
LOC: MED 15:43
DX: L02.411 Cutaneous abscess of right axilla (principal); Z79.899 Other long term (current) drug therapy
CPT/HCPCS: 10060; 99283; J2001

== ENCOUNTER 2021-03-30 09:16 | Emergency (ER) | payer OTHER ==
[~2021-03-30] VITALS: Ht 157.5 cm; Wt 66.7 kg
[2021-03-30 09:23] VITALS: BP 135/91
--- NOTE | 2021-03-30 09:45 | NUR ---
45 Y/O F BIB SPOUSE FROM HOME, STATES SHE STOPPED TAKING MEDICATION 2 WEEKS, THIS MORNING HAD BLOOD CLOTS. STATES SHE HAS BEEN FEELING WEAK AND DIZZY. DENIES LOC, HEAD INJURY AND SYNCOPE. DENIES N/V/D. DENIES ANY PAIN. MED: MEGESTROL 40MG 1 TAB BID, ADVIL 2 PO AROUND 0400 THIS MORNING NKDA PMH: IRREGULAR MENSTRATION
--- NOTE | 2021-03-30 10:02 | NUR ---
DR DAVIES AT BEDSIDE EXAMINING PT
--- NOTE | 2021-03-30 10:19 | NUR ---
ULTRASOUND AT BEDSIDE
[2021-03-30 10:20] LABS: BASOPHILS % (AUTO) 0.7 % (0.0-2.0); EOSINOPHILS % (AUTO) 0.3 % (0.0-4.0); HEMOGLOBIN 10.5 g/dL (12.0-16.0); LYMPHOCYTES # (AUTO) 1.8 K/uL (2.5-16.5); LYMPHOCYTES % (AUTO) 28.4 % (20.5-51.1); MEAN CORPUSCULAR HEMOGLOBIN 23 pg (27-31); MEAN CORPUSCULAR HGB CONC 32 g/dL (33-37); MEAN CORPUSCULAR VOLUME 73.4 fL (80-94); MONOCYTES # (AUTO) 0.4 K/uL (0.8-1.0); MONOCYTES % (AUTO) 5.5 % (1.7-9.3); NEUTROPHILS # (AUTO) 4.1 K/uL (1.8-7.7); NEUTROPHILS % (AUTO) 65.1 % (42.2-75.2); PLATELET COUNT (AUTO) 285 K/uL (140-450); RED BLOOD CELL COUNT(AUTO) 4.49 MIL/uL (4.20-5.40); RED CELL DISTRIBUTION WIDTH 19.9 % (11.6-13.7); WHITE BLOOD COUNT (AUTO) 6.4 K/uL (4.8-10.8)
[2021-03-30 10:23] LABS: APPEARANCE,URINE SL CLOUDY (CLEAR); BILIRUBIN,URINE NEGATIVE (NEGATIVE); BLOOD, URINE 3+ (NEGATIVE); COLOR,URINE ORANGE (YELLOW); LEUKOCYTE ESTERASE ,URINE NEGATIVE (NEGATIVE); NITRITE, URINE NEGATIVE (NEGATIVE); PH,URINE 5.5 (5.0-9.0); UGLUCOSE NEGATIVE (NEGATIVE)
[2021-03-30 10:43] LABS: ANION GAP 14.3 (8-16); CREATININE 0.8 mg/dL (0.6-1.3); POTASSIUM 3.3 mmol/L (3.5-5.1)
[2021-03-30 10:44] LABS: ALBUMIN 3.8 g/dL (3.4-5.0); TOTAL BILIRUBIN 0.4 mg/dL (0.0-1.0)
[2021-03-30 10:49] LABS: RBC,URINE 80-100 /HPF (0-5); WBC,URINE 0-5 /HPF (0-5)
[2021-03-30 11:42] VITALS: BP 135/91
--- NOTE | 2021-03-30 11:42 | NUR ---
Patient discharged with v/s stable. Written and verbal after care instructions given and explained. Patient alert, oriented and verbalized understanding of instructions. Ambulatory with steady gait. All questions addressed prior to discharge. ID band removed. Patient advised to follow up with PMD. Opportunity to ask questions provided and answered.
== END 2021-03-30 11:42 | disposition home or self-care (01) ==
LOC: MED 09:16
DX: N94.6 Dysmenorrhea, unspecified (principal); D25.9 Leiomyoma of uterus, unspecified; Z79.899 Other long term (current) drug therapy; Z98.890 Other specified postprocedural states
CPT/HCPCS: 36415; 76856; 80053; 81001; 81025; 85025; 86886; 86900; 86901; 93976; 99284; Q0092

== ENCOUNTER 2021-08-06 05:52 | Emergency (ER) | payer OTHER ==
[~2021-08-06] VITALS: Ht 157.5 cm; Wt 65.8 kg
[2021-08-06 05:56] VITALS: BP 135/89
--- NOTE | 2021-08-06 06:02 | NUR ---
patient to bed 12 ambulatory
--- NOTE | 2021-08-06 06:06 | NUR ---
Patient BIB by family from home. C/O vaginal bleeding x today. Patient reported, had vaginal bleeding since 0400 AM, heavy bleeding, Hx Anemia, Fibriod, Hormone Imbalance. Rx Hormone Rx. A/O,X4, lower abdominal, cramping pain, pain rate 8/10.
--- NOTE | 2021-08-06 06:12 | NUR ---
Dr. Jarvis examining patient.
[2021-08-06] MEDS ORDERED: KETOROLAC 60 MG/2 ML VIAL IM ONE (06:15)
[2021-08-06] MEDS ORDERED: MEDR10TA PO (06:21)
[2021-08-06] MEDS ORDERED: IBUP-2213 PO (06:21)
[2021-08-06 06:57] VITALS: BP 135/89
--- NOTE | 2021-08-06 06:57 | NUR ---
Patient discharged with v/s stable. Written and verbal after care instructions given and explained. Patient alert, oriented and verbalized understanding of instructions. Ambulatory with steady gait. All questions addressed prior to discharge. ID band removed. Patient advised to follow up with PMD. Rx of Ibuprofen and Provera given. Patient educated on indication of medication including possible reaction and side effects. Opportunity to ask questions provided and answered.
== END 2021-08-06 06:57 | disposition home or self-care (01) ==
LOC: MED 05:52
DX: N93.8 Other specified abnormal uterine and vaginal bleeding (principal); D64.9 Anemia, unspecified; Z98.890 Other specified postprocedural states; Z79.899 Other long term (current) drug therapy
CPT/HCPCS: 81002; 81025; 96372; 99283; J1885

== ENCOUNTER 2021-09-07 11:06 | Inpatient (IN) | payer OTHER, SELFPAY ==
[~2021-09-07 11:06] MED LIST changes: +IBUP-2213 PO; +MEDR10TA PO
[2021-09-07] MEDS ORDERED: MIDAZOLAM 2 MG/2 ML VIAL ONE (14:12)
[2021-09-07] MEDS ORDERED: fentaNYL citrate 0.05 MG/ML VIAL ONE (14:12)
[2021-09-07] MEDS ORDERED: HYDROmorphone PFS 2 MG/ML SYR ONE (14:12)
[2021-09-07] MEDS ORDERED: PROPOFOL 200 MG/20 ML VIAL IV ONE (14:15)
[2021-09-07] MEDS ORDERED: ROCURONIUM 50 MG/5 ML VIAL IV ONE (14:15)
[2021-09-07] MEDS ORDERED: DEXAMETHASONE 4 MG/ML VIAL ONE (14:15)
[2021-09-07] MEDS ORDERED: ePHEDrine 50 MG/ML VIAL ONE (14:15)
[2021-09-07] MEDS ORDERED: ONDANSETRON 4 MG/2 ML VIAL ONE (14:15)
[2021-09-07] MEDS ORDERED: LIDOCAINE 2% 100 MG/5 ML SYR IVP ONE (14:15)
[2021-09-07] MEDS ORDERED: BUPIVACAINE-MPF 0.25% 30 ML VIAL INJ ONE (14:31)
[2021-09-07] MEDS ORDERED: LIDOCAINE 1% 500 MG/50 ML VIAL ONE (14:32)
[2021-09-07] MEDS ORDERED: PHENYLEPHRINE 10 MG/ML VIAL ONE (15:21)
[2021-09-07] MEDS ORDERED: GLYCOPYRROLATE 0.2 MG/ML VIAL ONE (17:32)
[2021-09-07] MEDS ORDERED: NEOSTIGMINE 1:1000 10 MG/10 ML VIAL ONE (17:32)
[2021-09-07] MEDS ORDERED: oxyCODONE/APAP 5/325 MG 1 TAB TAB PO PRN ×2 (18:15)
[2021-09-07] MEDS ORDERED: diphenhydrAMINE 50 MG/ML VIAL IVP PRN (18:15)
[2021-09-07] MEDS ORDERED: PROMETHAZINE 25 MG/ML VIAL IVP PRN (18:15)
[2021-09-07] MEDS ORDERED: ONDANSETRON 4 MG/2 ML VIAL IVP PRN (18:15)
[2021-09-07] MEDS ORDERED: SEVOFLURANE 250 ML BTL INH ONE (19:00)
--- NOTE | 2021-09-07 20:00 | NUR ---
ADMITTED PT AOX4 FROM ER,STABLE CONDITION
--- NOTE | 2021-09-07 20:15 | NUR ---
GREWAL CATHETER DISCONTINUED PER
--- NOTE | 2021-09-07 22:00 | NUR ---
PATIENT SLEEPING, BREATHING EVEN AND UNLABORED ,NO DISTRESS NOTED
[2021-09-08] VITALS: BP 105/62
--- NOTE | 2021-09-08 | NUR ---
PATIENT SLEEPING ,BREATHING EVEN AND UNLABORED,INCISION SITE INTACT,NO DRAINAGE NOTED
[2021-09-08] MEDS: KETOROLAC 30 MG/ML VIAL IVP SCH ×3 (00:25→12:29)
--- NOTE | 2021-09-08 03:00 | NUR ---
VS WITHIN NORMAL LIMITS, NO DISTRESS NOTED
[2021-09-08 04:00] VITALS: BP 108/61
--- NOTE | 2021-09-08 06:00 | NUR ---
PATIENT AWAKE ,VS STABLE,NO DISTRESS NOTED
--- NOTE | 2021-09-08 07:10 | NUR ---
RECEIVED REPORT FROM BURNISHING MACHINE OPERATOR NURSE FOR CONTINUITY OF CARE. PT IS SLEEPING AT THIS TIME. RESPIRATIONS ARE EVEN AND UNLABORED, ON ROOM AIR. NO SIGNS OF SOB OR DISTRESS NOTED. PT IS A&OX4. ABLE TO VERBALIZE NEEDS TO STAFF. PT IS ON REGULAR DIET. ABD IS NONTENDER, NONDISTENDED WITH BOWEL SOUNDS NOTED. PT HAS IV TO L WRIST 18G, AND R HAND 22 G. CALL LIGHT WITHIN REACH. ALL SAFETY MEASURES IN PLACE. WILL CONTINUE TO MONITOR.
[2021-09-08 08:00] VITALS: BP 91/50
--- NOTE | 2021-09-08 10:15 | NUR ---
PT STATES THAT SHE WAS ABLE TO VOID SINCE GREWAL CATHETER WAS REMOVED. NO COMPLAINTS OF PAIN UPON URINATION. CALL LIGHT WITHIN REACH. ALL SAFETY MEASURES IN PLACE. WILL CONTINUE TO MONITOR.
--- NOTE | 2021-09-08 12:32 | NUR ---
IV MEDICATION ADMINISTERED BY RN. WILL CONTINUE TO MONITOR.
[2021-09-08 15:33] VITALS: BP 96/53
--- NOTE | 2021-09-08 16:00 | NUR ---
DISCHARGE ORDER IN PLACE. PER DR SANZ, MEDICATION PRESCRIPTIONS HAVE BEEN SENT OVER TO PTS PREFERRED PHARMACY ALREADY. PT MADE AWARE. STATES THAT DR SANZ HAD ALREADY INFORMED HER THAT HE HAD SENT OVER HER MEDICATIONS ALREADY. WILL CONTINUE TO MONITOR.
[2021-09-08] MEDS ORDERED: IBUP-2213 PO (16:01)
--- NOTE | 2021-09-08 16:25 | NUR ---
WENT OVER DISCHARGE PAPERWORK WITH PT. ANSWERED ALL QUESTIONS. PT SIGNED ALL PAPERWORK. REMOVED IV. IV CATHETER INTACT. REMOVED WRISTBAND. ALL BELONGINGS TAKEN UPON DISCHARGE. PT DISCHARGED HOME WITH FAMILY.
== END 2021-09-08 16:25 | disposition home or self-care (01) | DRG 519 ==
LOC: MDS 12:28 → EDSTATUS 12:35 → MMU 12:42
PROVIDERS: ADMIT Obstetrics & Gynecology; ATTEND Obstetrics & Gynecology
PROC: 0UT74ZZ Resection of Bilateral Fallopian Tubes, Percutaneous Endoscopic Approach (ICD-10-PCS; 2021-09-07)
PROC: 0UT94ZZ Resection of Uterus, Percutaneous Endoscopic Approach (ICD-10-PCS; principal; 2021-09-07 14:00)
DX: D25.9 Leiomyoma of uterus, unspecified (principal); N80.0 Endometriosis of uterus; N92.0 Excessive and frequent menstruation with regular cycle; N94.6 Dysmenorrhea, unspecified; Z20.822 Contact with and (suspected) exposure to COVID-19; N81.3 Complete uterovaginal prolapse; Z98.891 History of uterine scar from previous surgery; Z82.49 Family history of ischemic heart disease and other diseases of the circulatory system; Z84.89 Family history of other specified conditions; Z79.899 Other long term (current) drug therapy
CPT/HCPCS: 36415; 81025; 86886; 86900; 86901; 87081; J1100; J1170; J1885; J2001; J2250; J2370; J2405; J2704; J2710; J3010; J3490; J7030

== ENCOUNTER 2023-03-19 18:15 | Emergency (ER) | payer OTHER ==
[~2023-03-19] VITALS: Ht 157.5 cm; Wt 53.6 kg
[2023-03-19 18:23] VITALS: BP 128/87; PULSE 82; RESP 18; TEMP 97.7; O2SAT 99
== END 2023-03-19 21:20 | disposition left against medical advice (07) ==
LOC: MED 18:15
DX: M79.601 Pain in right arm (principal); Z53.21 Procedure and treatment not carried out due to patient leaving prior to being seen by health care provider
CPT/HCPCS: 99281

== ENCOUNTER 2023-04-10 21:16 | Emergency (ER) | payer OTHER ==
[~2023-04-10] VITALS: Ht 157.5 cm; Wt 54.4 kg
[2023-04-10 21:19] VITALS: BP 160/103; PULSE 92; RESP 16; TEMP 96.9; O2SAT 100
[2023-04-10 23:28] VITALS: BP 116/78; PULSE 92; RESP 16; TEMP 96.9; O2SAT 100
== END 2023-04-10 23:27 | disposition home or self-care (01) ==
LOC: MED 21:16
DX: S61.012A Laceration without foreign body of left thumb without damage to nail, initial encounter (principal); W26.0XXA Contact with knife, initial encounter; Y93.89 Activity, other specified; Y92.89 Other specified places as the place of occurrence of the external cause; Y99.8 Other external cause status
CPT/HCPCS: 12001; 99282

== ENCOUNTER 2023-12-20 20:24 | Emergency (ER) | payer OTHER ==
[~2023-12-20] VITALS: Ht 157.5 cm; Wt 52.7 kg
[2023-12-20 21:00] VITALS: BP 140/49; PULSE 79; RESP 18; TEMP 97.9; O2SAT 97
[2023-12-21] MEDS: KETOROLAC 60 MG/2 ML VIAL IM ONE (00:30)
[2023-12-21] MEDS ORDERED: NAPR-337 PO (02:24)
[2023-12-21] MEDS ORDERED: KETOROLAC 30 MG/ML VIAL ONE (02:29)
[2023-12-21] MEDS: KETOROLAC 30 MG/ML VIAL IM ONE (02:39)
== END 2023-12-21 02:32 | disposition home or self-care (01) ==
LOC: MED 20:24
DX: M54.50 Low back pain, unspecified (principal); Z91.018 Allergy to other foods; Z79.899 Other long term (current) drug therapy
CPT/HCPCS: 81025; 96372; 99284; J1885

== ENCOUNTER 2024-04-16 07:59 | Emergency (ER) | payer OTHER ==
[~2024-04-16] VITALS: Ht 154.9 cm; Wt 63.5 kg
[~2024-04-16 07:59] MED LIST changes: +NAPR-337 PO
[2024-04-16 08:01] VITALS: BP 127/88; PULSE 71; RESP 18; TEMP 98; O2SAT 100
[2024-04-16 08:14] VITALS: O2SAT 100
[2024-04-16 08:23] LABS: BASOPHILS % (AUTO) 0.7 % (0.0-2.0); EOSINOPHILS # (AUTO) 0.1 K/uL (0-0.4); EOSINOPHILS % (AUTO) 1.7 % (0.0-4.0); HEMATOCRIT 42.4 % (36-48); HEMOGLOBIN 14.3 g/dL (12.0-16.0); LYMPHOCYTES # (AUTO) 2.1 K/uL (2.5-16.5); LYMPHOCYTES % (AUTO) 46.2 % (20.5-51.1); MEAN CORPUSCULAR HEMOGLOBIN 30 pg (27-31); MEAN CORPUSCULAR HGB CONC 34 g/dL (33-37); MEAN CORPUSCULAR VOLUME 88.2 fL (80-94); MONOCYTES # (AUTO) 0.3 K/uL (0.8-1.0); MONOCYTES % (AUTO) 5.7 % (1.7-9.3); NEUTROPHILS # (AUTO) 2.1 K/uL (1.8-7.7); NEUTROPHILS % (AUTO) 45.7 % (42.2-75.2); PLATELET COUNT (AUTO) 193 K/uL (140-450); RED BLOOD CELL COUNT(AUTO) 4.81 MIL/uL (4.20-5.40); WHITE BLOOD COUNT (AUTO) 4.5 K/uL (4.8-10.8)
[2024-04-16] MEDS: CYCLOBENZAPRINE 10 MG TAB PO ONE (08:47)
[2024-04-16] MEDS: KETOROLAC 30 MG/ML VIAL IM ONE (08:52)
[2024-04-16 09:00] LABS: ALANINE AMINOTRANSFERASE 20 U/L (12-78); ALBUMIN 3.8 g/dL (3.4-5.0); ALKALINE PHOSPHATASE 80 U/L (50-136); ANION GAP 12.6 (8-16); ASPARTATE AMINOTRANSFERASE 14 U/L (15-37); CALCIUM 9.4 mg/dL (8.5-10.1); CARBON DIOXIDE 27.1 mmol/L (21-32); CHLORIDE 104 mmol/L (98-107); CREATININE 0.9 mg/dL (0.6-1.3); GFR ARICAN-AMERICAN 86 mL/min (>90); GFR NON ARICAN-AMERICAN 71 mL/min (>90); GLUCOSE 92 mg/dL (74-106); POTASSIUM 3.7 mmol/L (3.5-5.1); SODIUM SERUM 140 mmol/L (136-145); TOTAL BILIRUBIN 0.6 mg/dL (0.0-1.0); TOTAL PROTEIN, SERUM 7.1 g/dL (6.4-8.2); UREA NITROGEN, BLOOD 19 mg/dL (7-18)
[2024-04-16 09:15] VITALS: TEMP 98.1
== END 2024-04-16 09:15 | disposition home or self-care (01) ==
LOC: MED 07:59
DX: R07.89 Other chest pain (principal); Z79.899 Other long term (current) drug therapy; Z91.030 Bee allergy status
CPT/HCPCS: 36415; 71046; 80053; 84484; 85025; 93005; 96372; 99285; J1885